=== PATIENT | female | born 1960 | race Hispanic/Latino ===

== ENCOUNTER 2017-10-30 10:36 | Outpatient (CLI) | payer BC ==
--- NOTE | 2017-10-30 11:58 | RAD ---
LEFT KNEE THREE VIEWS: History: 57-year-old female with history of left knee pain. Comparison: 03-06-13 FINDINGS: Tricompartment arthrosis and degenerative changes with narrowing of the medial compartment. No fractu re or dislocation. 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 POS: [facility]
== END 2017-10-30 10:37 | disposition home or self-care (01) ==
LOC: RAD-FRANK 10:36
PROVIDERS: ATTEND Nurse Practitioner Family
DX: M25.562 Pain in left knee (principal)

== ENCOUNTER 2018-02-26 08:58 | Emergency (ER) | payer BC ==
--- NOTE | 2018-02-26 10:41 | ULT ---
RIGHT LOWER EXTREMITY VENOUS ULTRASOUND: HISTORY: Right leg pain. COMPARISON: 08/19/2009 TECHNIQUE: Multiplanar villavicencio-scale and color Doppler images were obtained in a right lower extremity venous ultra sound. Spectral analysis of the Doppler waveforms was performed. FINDINGS: The right common femoral vein, profunda femoral vein, superficial femoral vein, and popliteal vein ar e normal in appearance without visible thrombus. The vessels demonstrate normal compression, flow, a nd augmentation. The posterior tibial vein and greater saphenous vein are also patent. IMPRESSION: No evidence of deep venous thrombosis. POS: [facility]
--- NOTE | 2018-02-26 10:43 | RAD ---
RIGHT KNEE FOUR VIEW SERIES: INDICATIONS: Right knee pain. FINDINGS: There is a right knee arthroplasty without evidence of hardware complication. No acute fracture or d islocation. IMPRESSION: Postoperative right knee, without acute osseous abnormality. POS: [facility]
== END 2018-02-26 10:42 | disposition home or self-care (01) ==
LOC: ERS 08:58
DX: M25.461 Effusion, right knee (principal); E78.5 Hyperlipidemia, unspecified; I10 Essential (primary) hypertension; Z79.899 Other long term (current) drug therapy

== ENCOUNTER 2024-05-27 09:25 | Outpatient (CLI) | payer MEDICARE | END 2024-05-27 09:26 | disposition home or self-care (01) | LOC: ULT 09:25 | PROVIDERS: ATTEND Internal Medicine Nephrology | DX: N18.30 Chronic kidney disease, stage 3 unspecified (principal); N83.8 Other noninflammatory disorders of ovary, fallopian tube and broad ligament | CPT/HCPCS: 76770 ==